=== PATIENT | female | born 1965 | race Caucasian/White ===

== ENCOUNTER 2017-09-24 07:55 | Inpatient (IN) | payer OTHER ==
[~2017-09-24] VITALS: Ht 165.1 cm; Wt 105.2 kg
[~2017-09-24 07:55] MED LIST: BP MED; FLUOXETINE HCL20 MG PO; HEARTBURN MED; LISINOPRIL10 MG PO; LISINOPRIL5 MG PO; OMEPRAZOLE20 MG PO; XARELTO1 EACH PO
[2017-09-24 08:47] LABS: EOSINOPHIL (%) 3.8 % (0-5); EOSINOPHIL COUNT 0.1 K/uL (0-0.3); HEMATOCRIT 39.6 % (36.0-46.0); INSTRUMENT ABS NEUTROPHIL CT 2.2 K/uL; LYMPHOCYTE COUNT 1.1 K/uL (1.0-2.8); MCH 28.1 PG (29.0-34.0); MCHC 33.1 G/DL (30.0-36.0); MCV 84.8 FL (83-99); MEAN PLAT.VOLUME 10.6 uM^3 (9.5-12.4); MONOCYTE (%) 7.8 % (3-12); MONOCYTE COUNT 0.3 K/uL (0-0.8); NEUTROPHIL (%) 58.4 % (45-76); NEUTROPHIL COUNT 2.2 K/uL (1.8-6.4); PLATELET COUNT 188 K/uL (156-360); RBC DIS.WIDTH-CV 14.2 % (11.8-14.6); RBC DIS.WIDTH-SD 43.8 % (39-53); RED BLOOD COUNT 4.67 M/uL (3.80-5.20); WHITE BLOOD COUNT 3.7 K/uL (4.1-10.2)
[2017-09-24 08:54] LABS: INTER. NORMALIZED RATIO 1.1
[2017-09-24 08:55] LABS: CHLORIDE 107 mEq/L (99-109); POTASSIUM 4.6 mEq/L (3.7-5.4); SODIUM 142 mEq/L (136-147)
[2017-09-24 08:57] LABS: GLUCOSE 102 mg/dL (70-99); PTT 30.3 SEC (25-37)
[2017-09-24 08:58] LABS: ANION GAP 10 MEQ/L (2-14)
[2017-09-24 09:01] LABS: GFR ESTIMATE (CALCULATED) > 59 mL/min/
[2017-09-24 09:02] LABS: UREA NITROGEN (BUN) 19 mg/dL (9-23)
[2017-09-24 09:07] LABS: TROP-I INTERPRETATION NEGATIVE; TROPONIN-I 0.04 ng/mL (0.0-0.30)
[2017-09-24] MEDS ORDERED: PROZAC20 MG PO (10:39)
[2017-09-24] MEDS ORDERED: TRAZODONE HCL50 MG PO (10:39)
[2017-09-24] MEDS ORDERED: PRAVASTATIN SOD20 MG PO (10:39)
[2017-09-24] MEDS ORDERED: BUSPAR30 MG PO ×2 (10:40)
[2017-09-24] MEDS ORDERED: ACAMPROSATE CA333 MG PO (10:41)
[2017-09-24] MEDS ORDERED: VITAMIN D31000 UNIT PO (10:42)
[2017-09-24] MEDS ORDERED: HYDROCHLOROTHIA25 MG PO (10:42)
[2017-09-24] MEDS ORDERED: CYANOCOBALAM1000 MCG PO (10:43)
[2017-09-24] MEDS ORDERED: FOLIC ACID0.4 MG PO (10:44)
[2017-09-24 12:44] VITALS: BP 158/94
[2017-09-24 20:12] VITALS: BP 126/93
[2017-09-25] VITALS (7 sets, daily range): BP systolic 106–129; BP diastolic 50–92
[2017-09-25 05:52] LABS: EOSINOPHIL (%) 3.5 % (0-5); EOSINOPHIL COUNT 0.2 K/uL (0-0.3); HEMATOCRIT 40.6 % (36.0-46.0); IMMATURE GRANULOCYTE (%) 0.2 % (0.0-0.7); INSTRUMENT ABS NEUTROPHIL CT 1.9 K/uL; LYMPHOCYTE COUNT 1.9 K/uL (1.0-2.8); MCH 27.4 PG (29.0-34.0); MCHC 32.5 G/DL (30.0-36.0); MCV 84.4 FL (83-99); MEAN PLAT.VOLUME 10.7 uM^3 (9.5-12.4); MONOCYTE (%) 8.1 % (3-12); MONOCYTE COUNT 0.4 K/uL (0-0.8); NEUTROPHIL (%) 44.6 % (45-76); NEUTROPHIL COUNT 1.9 K/uL (1.8-6.4); PLATELET COUNT 203 K/uL (156-360); RBC DIS.WIDTH-CV 14.6 % (11.8-14.6); RBC DIS.WIDTH-SD 44.8 % (39-53); RED BLOOD COUNT 4.81 M/uL (3.80-5.20); WHITE BLOOD COUNT 4.3 K/uL (4.1-10.2)
[2017-09-26 04:39] VITALS: BP 115/82
[2017-09-26 06:08] LABS: HEMATOCRIT 39.3 % (36.0-46.0); MCH 27.6 PG (29.0-34.0); MCHC 32.6 G/DL (30.0-36.0); MCV 84.7 FL (83-99); MEAN PLAT.VOLUME 10.5 uM^3 (9.5-12.4); PLATELET COUNT 191 K/uL (156-360); RBC DIS.WIDTH-CV 14.3 % (11.8-14.6); RED BLOOD COUNT 4.64 M/uL (3.80-5.20); WHITE BLOOD COUNT 4.7 K/uL (4.1-10.2)
[2017-09-26 07:00] VITALS: BP 124/76
[2017-09-26] MEDS ORDERED: FOLIC ACID1 MG PO (08:32)
[2017-09-26] MEDS ORDERED: BUSPAR15 MG PO (08:32)
[2017-09-26] MEDS ORDERED: XARELTO15 MG PO (08:32)
== END 2017-09-26 10:53 | disposition home or self-care (01) | DRG 176 ==
LOC: EME 07:55 → EDOF 11:09 → 2EAST 11:09 → ENRESERV 11:23 → 2EAST 12:32
PROVIDERS: Emergency Medicine; Internal Medicine
DX: I26.99 Other pulmonary embolism without acute cor pulmonale (principal); K21.9 Gastro-esophageal reflux disease without esophagitis; I10 Essential (primary) hypertension; F41.9 Anxiety disorder, unspecified; E78.5 Hyperlipidemia, unspecified; F32.9 Major depressive disorder, single episode, unspecified; F10.10 Alcohol abuse, uncomplicated; E66.9 Obesity, unspecified; Z96.642 Presence of left artificial hip joint; Z68.38 Body mass index [BMI] 38.0-38.9, adult; Z86.711 Personal history of pulmonary embolism
CPT/HCPCS: 71020; 71275; 80048; 82272; 83880; 84484; 85025; 85027; 85610; 85730; 93005; 93970; 99281; 99285

== ENCOUNTER 2017-12-01 17:04 | Inpatient (IN) | payer OTHER ==
[~2017-12-01] VITALS: Ht 162.6 cm; Wt 101.1 kg
[~2017-12-01 17:04] MED LIST changes: +ACAMPROSATE CA333 MG PO; +BUSPAR15 MG PO; +BUSPAR30 MG PO; +CYANOCOBALAM1000 MCG PO; +FOLIC ACID0.4 MG PO; +FOLIC ACID1 MG PO; +HYDROCHLOROTHIA25 MG PO; +PRAVASTATIN SOD20 MG PO; +PROZAC20 MG PO; +TRAZODONE HCL50 MG PO; +VITAMIN D31000 UNIT PO; +XARELTO15 MG PO
[2017-12-01 17:24] LABS: HEMATOCRIT 40.4 % (36.0-46.0); HEMOGLOBIN 13.6 G/DL (11.9-15.5); MCH 27.6 PG (29.0-34.0); MCHC 33.7 G/DL (30.0-36.0); MCV 81.9 FL (83-99); PLATELET COUNT 245 K/uL (156-360); RBC DIS.WIDTH-CV 14.1 % (11.8-14.6); RBC DIS.WIDTH-SD 41.8 % (39-53); RED BLOOD COUNT 4.93 M/uL (3.80-5.20)
[2017-12-01 17:34] LABS: CHLORIDE 109 mEq/L (99-109); POTASSIUM 3.7 mEq/L (3.7-5.4); SODIUM 145 mEq/L (136-147)
[2017-12-01 17:36] LABS: GLUCOSE 93 mg/dL (70-99)
[2017-12-01 17:39] LABS: SERUM ETHYL ALCOHOL 251 mg/dL
[2017-12-01 17:40] LABS: CREATININE 0.9 mg/dL (0.6-1.3); GFR ESTIMATE (CALCULATED) > 59 mL/min/
[2017-12-01 17:41] LABS: UREA NITROGEN (BUN) 18 mg/dL (9-23)
[2017-12-01 17:43] LABS: ACETAMINOPHEN (TYLENOL) < 10 mcg/mL (10-30); SALICYLATE < 5.0 MG/DL (15-30)
[2017-12-02 02:56] LABS: AMPHETAMINE NEGATIVE (500 ng/mL); BENZODIAZEPINES PRESUMPTIVE POSITIVE (150 ng/mL); COCAINE NEGATIVE (150 ng/mL); METHADONE NEGATIVE (200 ng/mL); METHAMPHETAMINE NEGATIVE (500 ng/mL); OPIATES (MORPHINE) NEGATIVE (100 ng/mL); PHENCYCLIDINE NEGATIVE (25 ng/mL); THC CANNABINOIDS NEGATIVE (50 ng/mL); TRICYCLIC ANTIDEPRESSANTS NEGATIVE (300 ng/mL)
[2017-12-02 02:57] LABS: BARBITURATES NEGATIVE (200 ng/mL); BUPRENORPHINE NEGATIVE (10 ng/mL); OXYCODONE NEGATIVE (100 ng/mL); PROPOXYPHENE NEGATIVE (300 ng/mL)
[2017-12-02 03:36] LABS: BENZODIAZEPINES, URINE SCREEN Negative (200 ng/mL)
[2017-12-02 05:48] VITALS: BP 126/80
[2017-12-02 07:39] VITALS: BP 148/94
[2017-12-02] MEDS ORDERED: XARELTO20 MG PO (15:25)
[2017-12-02 16:07] VITALS: BP 127/66
[2017-12-03 07:50] VITALS: BP 163/86
[2017-12-03 15:57] VITALS: BP 125/85
[2017-12-04 07:16] VITALS: BP 144/86
[2017-12-04 16:04] VITALS: BP 111/68
[2017-12-05 07:21] VITALS: BP 135/83
[2017-12-05] MEDS ORDERED: FOLIC ACID1 MG PO (09:03)
[2017-12-05] MEDS ORDERED: TRAZODONE HCL100 MG PO (09:03)
[2017-12-05] MEDS ORDERED: EFFEXOR XR150 MG PO (09:03)
[2017-12-05] MEDS ORDERED: ARIPIPRAZOLE5 MG PO (09:03)
[2017-12-05] MEDS ORDERED: Thiamine,Vitamin B1 PO (09:03)
== END 2017-12-05 10:52 | disposition home or self-care (01) | DRG 885 ==
LOC: EME 17:04 → 1WEST 12-02 01:49 → EDOF 12-02 01:49 → 1WEST 12-02 01:49 → ENRESERV 12-02 05:19 → 1WEST 12-02 05:20
PROVIDERS: Emergency Medicine
DX: F33.2 Major depressive disorder, recurrent severe without psychotic features (principal); R45.851 Suicidal ideations; F10.129 Alcohol abuse with intoxication, unspecified; Y90.8 Blood alcohol level of 240 mg/100 ml or more; I10 Essential (primary) hypertension; K21.9 Gastro-esophageal reflux disease without esophagitis; E66.9 Obesity, unspecified; Z96.642 Presence of left artificial hip joint; Z68.38 Body mass index [BMI] 38.0-38.9, adult
CPT/HCPCS: 70450; 71045; 72125; 72170; 73564; 80048; 84999; 85027; 90837; 97150 GO; 97165 GO; 99281; 99285; G0480; J1630